=== PATIENT | male | born 1980 | race Caucasian/White ===

== ENCOUNTER 2018-10-12 22:08 | Emergency (ER) | payer OTHER ==
[2018-10-12] MEDS ORDERED: Doxycycline 100 MG Cap PO ONE (22:56)
--- NOTE | 2018-10-12 22:58 | EDM.PDOC ---
ED HPI GENERAL MEDICAL PROBLEM - General Chief Complaint: General Stated Complaint: ATE A MUSHROOM Time Seen by Provider: 10/12/18 22:42 Source of Information: Reports: Patient, Family, RN Notes Reviewed History Limitations: Reports: No Limitations - History of Present Illness INITIAL COMMENTS - FREE TEXT/NARRATIVE: 37-year-old gentleman presents emergency department today complaint of possible ingestion of [place] mushroom. He did ingest a small portion of mustering approximately 2 hours prior to presenting to the emergency department. He also has another concern while he was out mushrooming he did find a deer tick on him that was attached to his neck he is asymptomatic at this time - Related Data Allergies Allergy/AdvReac Type Severity Reaction Status Date / Time No Known Allergies Allergy Verified 10/12/18 22:35 Home Meds: Home Meds NK [No Known Home Meds] 10/12/18 [History] Past Medical History Cardiovascular History: Reports: Hypertension - Infectious Disease History Infectious Disease History: Reports: Chicken Pox Social & Family History - Family History Family Medical History: Noncontributory - Tobacco Use Smoking Status *Q: Never Smoker Second Hand Smoke Exposure: No - Caffeine Use Caffeine Use: Reports: Coffee - Recreational Drug Use Recreational Drug Use: No ED ROS GENERAL - Review of Systems Review Of Systems: See Below Constitutional: Reports: No Symptoms HEENT: Reports: No Symptoms Respiratory: Reports: No Symptoms Cardiovascular: Reports: No Symptoms GI/Abdominal: Reports: No Symptoms : Reports: No Symptoms Musculoskeletal: Reports: No Symptoms Skin: Reports: No Symptoms ED EXAM, GENERAL - Physical Exam Exam: See Below Exam Limited By: No Limitations General Appearance: Alert, WD/WN, No Apparent Distress Respiratory/Chest: No Respiratory Distress, Lungs Clear, Normal Breath Sounds, No Accessory Muscle Use, Chest Non-Tender Cardiovascular: Regular Rate, Rhythm, No Murmur GI/Abdominal: Soft, Non-Tender Course - Vital Signs Last Recorded V/S: Last Vital Signs Temp 95.6 F 10/12/18 22:36 Pulse 73 10/12/18 22:36 Resp 18 10/12/18 22:36 BP 162/95 H 10/12/18 22:36 Pulse Ox 96 10/12/18 22:36 - Orders/Labs/Meds Labs: Laboratory Tests 10/12/18 10/12/18 Range/Units 23:00 23:00 WBC 4.9 (4.5-11.0) K/uL RBC 4.83 (4.30-5.90) M/uL Hgb 14.8 (12.0-15.0) g/dL Hct 43.8 (40.0-54.0) % MCV 91 (80-98) fL MCH 31 (27-31) pg MCHC 34 (32-36) % Plt Count 179 (150-400) K/uL Neut % (Auto) 46 (36-66) % Lymph % (Auto) 40 (24-44) % [place] % (Auto) 11 H (2-6) % Eos % (Auto) 3 (2-4) % Baso % (Auto) 1 (0-1) % Sodium 140 (140-148) mmol/L Potassium 3.9 (3.6-5.2) mmol/L Chloride 103 (100-108) mmol/L Carbon Dioxide 30 (21-32) mmol/L Anion Gap 6.7 (5.0-14.0) mmol/L BUN 23 H (7-18) mg/dL Creatinine 1.3 (0.8-1.3) mg/dL Est Cr Clr Drug Dosing 93.66 mL/min Estimated GFR (MDRD) > 60 (>60) Glucose 100 (74-106) mg/dL Calcium 9.5 (8.5-10.1) mg/dL Total Bilirubin 0.3 (0.2-1.0) mg/dL AST 25 (15-37) U/L ALT 50 (12-78) U/L Alkaline Phosphatase 66 (46-116) U/L Total Protein 7.2 (6.4-8.2) g/dL Albumin 4.0 (3.4-5.0) g/dL Globulin 3.2 (2.3-3.5) g/dL Albumin/Globulin Ratio 1.3 (1.2-2.2) Meds: Medications Discontinued Medications Generic Name Dose Route Start Last Admin Trade Name Freq PRN Reason Stop Dose Admin Doxycycline Hyclate 200 mg 10/12/18 22:56 10/12/18 23:07 Vibramycin PO 10/12/18 22:57 200 mg ONETIME ONE Administration Departure - Departure Time of Disposition: 00:01 Disposition: Home, Self-Care 01 Condition: Fair Clinical Impression: Mushroom poisoning Qualifiers: Encounter type: initial encounter Injury intent: accidental or unintentional Qualified Code(s): T62.0X1A - Toxic effect of ingested mushrooms, accidental ( unintentional), initial encounter - Discharge Information Referrals: PCP,None [Primary Care Provider] - Forms: ED Department Discharge Additional Instructions: Asymptomatic development please return to the emergency department, - Assessment/Plan Plan: Assessment Acuity = acute Site and laterality = false King mushroom ingestion Etiology = mis-identification Manifestations = none Location of injury = Home Lab values =CBC, CMP within normal limits Plan We did contact poison control for positive identification with the false King mushroom by photograph, recommend 10-12 hour observation however he declined this would prefer to go home did funeral pre arrangement counselor him on symptoms that he may experience such as seizure nausea vomiting diarrhea, he will return to the emergency department with any symptomatic development This note was dictated using [employer] voice recognition software please call with any questions on syntax or grammar.
== END 2018-10-13 00:09 | disposition home or self-care (01) ==
LOC: JP.ED 22:08
DX: T62.0X1A Toxic effect of ingested mushrooms, accidental (unintentional), initial encounter (principal); I10 Essential (primary) hypertension
CPT/HCPCS: 36415; 80053; 85025; 99283; A9270